=== PATIENT | female | born 1970 | race American Indian/Alaskan Native ===

== ENCOUNTER 2016-11-26 06:19 | Day surgery (SDC) | payer BC ==
[~2016-11-26 06:19] MED LIST: ANCEF/STERILE WATER 2 GM/20 ML IV NR; OMNIPAQUE (300 MG) IR ONE
--- NOTE | 2016-11-26 06:58 | Anesthesia Consultation ---
Anesthesia Consult and Med Hx Date of service: 11/26/16 - Airway Anesthetic Teeth Evaluation: Good ROM Head & Neck: Adequate Mental/Hyoid Distance: Adequate Mallampati Class: Class II Intubation Access Assessment: Probably Good - Pulmonary Exam CTA: Yes - Cardiac Exam Cardiac Exam: RRR - Pre-Operative Health Status ASA Pre-Surgery Classification: ASA1 Proposed Anesthetic Plan: General - Pulmonary Hx Smoking: No Hx Sleep Apnea: No ([facility]A PRE SCREEN NEGATIVE) - Cardiovascular System Hx Hypertension: No - Hematic Hx Anemia: Yes Hx Sickle Cell Disease: No (SC TRAIT ONLY) - Other Systems Hx Cancer: No
[2016-11-26] MEDS ORDERED: ZOFRAN IV PRN (06:59)
[2016-11-26] MEDS ORDERED: NORCO 5/325 PO PRN (06:59)
[2016-11-26] MEDS ORDERED: DILAUDID IV PRN (06:59)
--- NOTE | 2016-11-26 06:59 | Anesthesia Day of Surgery ---
Anesthesia Day of Surgery - Day of Surgery Patient Examined: Yes Patient H&P Reviewed: Yes Patient is NPO: Yes
[2016-11-26] MEDS ORDERED: VERSED IV NR (07:00)
[2016-11-26] MEDS ORDERED: PEPCID PO NR (07:00)
[2016-11-26] MEDS ORDERED: NACL 0.9% 1000 ML 1,000 ML IV SCH (07:00)
[2016-11-26] MEDS ORDERED: NACL BACTERIOSTATIC INFILTRATI ONE (07:07)
[2016-11-26] MEDS ORDERED: DIPRIVAN 10 MG/ML IV ONE (07:15)
[2016-11-26] MEDS ORDERED: SUBLIMAZE ONE (07:20)
[2016-11-26] MEDS ORDERED: XYLOCAINE MPF 2% ONE (07:24)
[2016-11-26] MEDS ORDERED: ZOFRAN ONE (07:24)
[2016-11-26 07:35] LABS: Hematocrit 35.1 % (30.3-42.9); Hemoglobin 11.9 gm/dl (10.1-14.3)
[2016-11-26] MEDS ORDERED: OMNIPAQUE (300 MG) IR ONE (08:14)
[2016-11-26] MEDS ORDERED: TORADOL ONE (08:23)
--- NOTE | 2016-11-26 08:33 | Short Stay Summary ---
Short Stay Documentation Date of service: 11/26/16 - History H&P: obtained from office - Allergies and Medications Current Medications: Allergies No Known Allergies Allergy (Verified 11/22/16 11:56) Home Medications Medication Instructions Recorded Confirmed Last Taken Type No Known Home Medications [No 11/22/16 11/22/16 Unknown History Reported Home Medications] Active Medications Cefazolin Sodium (Ancef/Sterile Water 2 Gm/20 Ml) 2 gm IV PREOP NR Stop: 11/26/16 23:59 Famotidine (Pepcid) 20 mg PO PREOP NR Stop: 11/26/16 23:00 Last Admin: 11/26/16 07:35 Dose: 20 mg Hydromorphone HCl (Dilaudid) 0.5 mg IV Q10MIN PRN PRN Reason: Pain , Severe (7-10) Stop: 11/29/16 07:00 Sodium Chloride (Nacl 0.9% 1000 Ml) 1,000 mls @ 100 mls/hr IV DIRECT MAGALI Last Admin: 11/26/16 07:33 Dose: 100 mls/hr Midazolam HCl (Versed) 2 mg IV PREOP NR Stop: 11/26/16 12:00 Last Admin: 11/26/16 07:35 Dose: 2 mg - Brief post op/procedure progress note Date of procedure: 11/26/16 Pre-op diagnosis: bladder mass, hematuria Post-op diagnosis: same Procedure: cysto, rpg, bx bladder mass x 2-----trigone Anesthesia: GETA Surgeon: ZAMZAM MCKEE Estimated blood loss: minimal Pathology: list (bladder mass x2) Specimen disposition: to lab Condition: stable - Hospital course Hospital course: ana on chart - Disposition Condition at discharge: Stable Disposition: DISCHARGED TO HOME OR SELFCARE Short Stay Discharge Plan Follow up with: ROHIT JAMES MD [Primary Care Provider] - 7 Days
--- NOTE | 2016-11-26 09:23 | Post Anesthesia Evaluation ---
- Post Anesthesia Evaluation Patient Participated: Yes Airway Patent: Yes Stable Respiratory Function: Yes Temp > 96.8F: Yes Pain Manageable: Yes Adequeate Hydration: Yes Anesthesia Complications: No Block Receding Appropriately: Not Applicable
[2016-11-26 12:03] VITALS: BP 124/61
--- NOTE | 2016-11-26 22:28 | Consultation ---
PREOPERATIVE DIAGNOSES: Hematuria, bladder mass. POSTOPERATIVE DIAGNOSES: Hematuria, bladder mass. PROCEDURE: Cystoscopy, bilateral retrograde pyelograms, biopsy of bladder mass x 2 (trigone). SURGEON: Cezar Nash MD ANESTHESIA: General. ANESTHESIOLOGIST: Dr. Austin. No complications. INDICATIONS: This patient is a 46-year-old female referred by Dr. Melina Del Cid for evaluation of hematuria. CT of abdomen and pelvis 08/2016 revealed a possible bladder mass. She also had an IUD in place. She has had several episodes of hematuria in the past. DESCRIPTION OF PROCEDURE: The patient was taken to the operative suite, placed in a supine position. After adequate general anesthesia, placed in a dorsal lithotomy position, prepped and draped in a sterile fashion. Pancystourethroscopy was performed with 22 [place] cystoscope. No urethral abnormalities. Her bladder displayed 2 areas of the trigone somewhat erythematous. Both ureteral orifices in normal position. Bilateral retrograde pyelograms were obtained with an 8 [place] catheter and 8 mL of contrast. No filling defects or obstruction. Using cold cup biopsy forceps, complete biopsy and removal of the mass x 2 in the trigone was performed, fulguration of the base with a current of 30. Adequate hemostasis was achieved. Her bladder was drained. She was extubated and taken to recovery room in stable condition. She will go home on [facility] and [place] and follow up in the office. JOB# [id number] Brie/NONI
--- NOTE | 2016-11-27 07:36 | Fluoroscopy Report ---
RETROGRADE PYELOGRAM: History: Hematuria. There is adequate filling of the ureters and intrarenal collecting systems with no filling defects or anatomic abnormalities identified.
== END 2016-11-26 10:45 | disposition home or self-care (01) ==
LOC: OR 06:19
PROVIDERS: ATTEND Urology
DX: N32.89 Other specified disorders of bladder (principal); D57.3 Sickle-cell trait
CPT/HCPCS: 36415; 52204; 74420; 81025; 85014; 85018; 88305; 88342; C1758; J0690; J1885; J2250; J2405; J2704; J3010; J7030; Q9967